=== PATIENT | male | born 1990 | race Two or more races ===

== ENCOUNTER 2021-01-08 12:16 | Emergency (ER) | payer MEDICAID ==
[~2021-01-08] VITALS: Ht 177.8 cm; Wt 90.7 kg
[2021-01-08 18:55] VITALS: BP 120/78
== END 2021-01-08 18:27 | disposition home or self-care (01) ==
LOC: ER 12:16
DX: U07.1 COVID-19 (principal); F17.210 Nicotine dependence, cigarettes, uncomplicated
CPT/HCPCS: 71046; 93005

== ENCOUNTER 2021-05-18 18:10 | Emergency (ER) | payer MEDICAID ==
[~2021-05-18] VITALS: Ht 177.8 cm; Wt 104.3 kg
[2021-05-18 18:13] VITALS: BP 137/82
== END 2021-05-18 18:49 | disposition left against medical advice (07) ==
LOC: ER 18:10
DX: M79.604 Pain in right leg (principal); Z53.21 Procedure and treatment not carried out due to patient leaving prior to being seen by health care provider